=== PATIENT | female | born 1980 | race Caucasian/White ===

== ENCOUNTER → 2020-10-29 | Outpatient (CLI) | payer OTHER ==
[~2020-10-29] MED LIST: ADVAIR HFA 230/12 GM INH; ALBUTEROL0.63 MG/3 INH; COLACE100 MG PO; DAILY VALUE1 EACH PO; HYDROXYZINE HCL10 MG PO; IBU800 MG PO; IBUPROFEN800 MG PO; KLONOPIN1 MG PO; LISINOPRIL20 MG PO; LUBRICANT EYE DROPS EYEBOTH; MELATONIN3 MG PO; ONDANSETRON HCL8 MG PO; PANTOPRAZOLE PO; PERCOCET 5/325 T1 EA PO; PRAZOSIN HCL1 MG PO; PRAZOSIN HCL2 MG PO; PROAIR HFA8.5 GM INH; REXULTI0.5 MG PO; TYLENOL EXTRA500 MG PO; VITAMIN D21250 MCG PO; WELLBUTRIN SR200 MG PO; XYZAL5 MG PO; [UNRECOGNIZED DRUG - OTHER] EYEBOTH
[2020-10-29 10:42] LABS: RED BLOOD COUNT 4.47 M/UL (4.00-5.10); WHITE BLOOD COUNT 4.9 K/UL (4.5-11.0)
[2020-10-29 11:13] LABS: BUN/CREATININE RATIO 16 (0-10)
[2020-10-30 08:15] LABS: CORTISOL 12.3 ug/dL (.)
[2020-10-31 14:13] LABS: ATYPICAL PANCA <1:20 titer (Neg:<1:20); CYTOPLASMIC (C-ANCA) 1:40 titer (Neg:<1:20); PERINUCLEAR (P-ANCA) <1:20 titer (Neg:<1:20)
[2020-11-02 00:09] LABS: CCP ANTIBODIES IGG/IGA 5 units (0-19)
== END ==
LOC: LAB 09:53
PROVIDERS: Registered Nurse
DX: M79.10 Myalgia, unspecified site (principal); I10 Essential (primary) hypertension; R00.0 Tachycardia, unspecified
CPT/HCPCS: 36415; 80053; 82533; 84439; 84443; 85027; 86038; 86200; 86256

== ENCOUNTER → 2021-02-26 | Outpatient (CLI) | payer OTHER ==
[2021-02-26 10:48] LABS: HEMOGLOBIN 12.3 gm/dl (12.3-15.3); RED BLOOD COUNT 4.4 M/UL (4.00-5.10); WHITE BLOOD COUNT 6.5 K/UL (4.5-11.0)
[2021-02-26 10:55] LABS: BUN/CREATININE RATIO 12 (0-10)
== END ==
LOC: OPSV2 09:23
PROVIDERS: Obstetrics & Gynecology
DX: Z01.812 Encounter for preprocedural laboratory examination (principal); N93.9 Abnormal uterine and vaginal bleeding, unspecified
CPT/HCPCS: 36415; 80053; 81001; 85025

== ENCOUNTER → 2021-02-28 | Day surgery (SDC) | payer OTHER | END | disposition home or self-care (01) | LOC: OR 06:22 | DX: N80.3 Endometriosis of pelvic peritoneum (principal); N80.1 Endometriosis of ovary; N83.201 Unspecified ovarian cyst, right side; K66.0 Peritoneal adhesions (postprocedural) (postinfection); J45.909 Unspecified asthma, uncomplicated; I10 Essential (primary) hypertension; F41.9 Anxiety disorder, unspecified; F32.9 Major depressive disorder, single episode, unspecified; K21.9 Gastro-esophageal reflux disease without esophagitis; Z87.891 Personal history of nicotine dependence; Z79.1 Long term (current) use of non-steroidal anti-inflammatories (NSAID); Z79.899 Other long term (current) drug therapy | CPT/HCPCS: 36415; 84702; J0690; J1100; J1170; J1885; J2001; J2250; J2405; J2550; J2704; J2710; J3010; J7030; J7120 ==

== ENCOUNTER → 2021-03-24 | Outpatient (CLI) | payer OTHER ==
[2021-03-24 13:25] LABS: HEMOGLOBIN 13.1 gm/dl (12.3-15.3); RED BLOOD COUNT 4.42 M/UL (4.00-5.10); WHITE BLOOD COUNT 6.9 K/UL (4.5-11.0)
[2021-03-24 13:46] LABS: BUN/CREATININE RATIO 20 (0-10)
[2021-03-25 12:14] LABS: RHEUMATOID ARTHRITIS FACTOR <10.0 IU/mL (0.0-13.9)
== END ==
LOC: LAB 12:49
PROVIDERS: Nurse Practitioner Family
DX: M25.50 Pain in unspecified joint (principal); M79.10 Myalgia, unspecified site
CPT/HCPCS: 80053; 81001; 82550; 82570; 82728; 83520; 84156; 84439; 84443; 85025; 85652; 86140; 86200; 86431

== ENCOUNTER → 2021-04-29 | Outpatient (CLI) | payer OTHER ==
[2021-04-29 10:40] LABS: HEMOGLOBIN 13.2 gm/dl (12.3-15.3); RED BLOOD COUNT 4.5 M/UL (4.00-5.10); WHITE BLOOD COUNT 4.8 K/UL (4.5-11.0)
[2021-04-29 10:46] LABS: BUN/CREATININE RATIO 16 (0-10)
[2021-04-30 07:10] LABS: VITAMIN D, 25-HYDROXY 20.7 ng/mL (30.0-100.0)
[2021-04-30 08:14] LABS: RHEUMATOID ARTHRITIS FACTOR <10.0 IU/mL (0.0-13.9)
== END ==
LOC: LAB 08:29
PROVIDERS: Nurse Practitioner Family
DX: R05 Cough (principal); J32.9 Chronic sinusitis, unspecified; R76.8 Other specified abnormal immunological findings in serum; M25.50 Pain in unspecified joint; Z87.39 Personal history of other diseases of the musculoskeletal system and connective tissue
CPT/HCPCS: 36415; 71046; 80053; 81001; 82550; 82570; 82728; 83520; 84156; 84439; 84443; 85025; 85652; 86140; 86200; 86431

== ENCOUNTER → 2021-05-19 | Outpatient (CLI) | payer OTHER | LOC: KOH-I 10:05 | DX: J32.9 Chronic sinusitis, unspecified (principal); R76.8 Other specified abnormal immunological findings in serum | CPT/HCPCS: 70486; 71046 ==

== ENCOUNTER → 2021-07-02 | Outpatient (CLI) | payer OTHER ==
[~2021-07-02] MED LIST changes: +MAGIC MOUTH WASH; +PEPCID20 MG PO; +PRAZOSIN HCL5 MG PO
[2021-07-02 11:17] LABS: HEMOGLOBIN 13.4 gm/dl (12.3-15.3); RED BLOOD COUNT 4.5 M/UL (4.00-5.10); WHITE BLOOD COUNT 5.3 K/UL (4.5-11.0)
[2021-07-02 11:30] LABS: BUN/CREATININE RATIO 13 (0-10)
== END ==
LOC: OPSV2 09:22
PROVIDERS: Obstetrics & Gynecology
DX: Z01.812 Encounter for preprocedural laboratory examination (principal); R10.2 Pelvic and perineal pain
CPT/HCPCS: 36415; 80048; 81001; 85025

== ENCOUNTER 2021-07-10 11:54 | Inpatient (IN) | payer OTHER ==
[~2021-07-10] VITALS: Ht 160 cm; Wt 96.6 kg
--- NOTE | 2021-07-10 20:42 | NUR ---
Patient noted to be leaving floor at this time for surgery.
--- NOTE | 2021-07-10 23:31 | NUR ---
Approximately 23:25, patient noted to return from surgery. Wearing O2 at 3L via nasal cannula. Patient assessed. Carter in place. at bedside. Patient alert and oriented, complaining of abd pain. Pain med will be administered once available.
[2021-07-11] MEDS ORDERED: IBUPROFEN800 MG PO (12:47)
[2021-07-11] MEDS ORDERED: PERCOCET 5/325 T1 EA PO (12:47)
[2021-07-11] MEDS ORDERED: COLACE100 MG PO (12:47)
== END 2021-07-11 15:30 | disposition home or self-care (01) | DRG 743 ==
LOC: OR 11:54 → MED SURG 4 11:55 → OR 13:30 → EDSTATUS 13:30 → OR 13:45 → MED SURG 4 17:30
PROVIDERS: ADMIT Obstetrics & Gynecology
PROC: 0UB70ZZ Excision of Bilateral Fallopian Tubes, Open Approach (ICD-10-PCS; 2021-07-10)
PROC: 0UB20ZZ Excision of Bilateral Ovaries, Open Approach (ICD-10-PCS; 2021-07-10)
PROC: 0UN00ZZ Release Right Ovary, Open Approach (ICD-10-PCS; 2021-07-10)
PROC: 0UT90ZL Resection of Uterus, Supracervical, Open Approach (ICD-10-PCS; principal; 2021-07-10 13:45)
DX: N83.202 Unspecified ovarian cyst, left side (principal); N94.6 Dysmenorrhea, unspecified; J45.909 Unspecified asthma, uncomplicated; F41.9 Anxiety disorder, unspecified; I10 Essential (primary) hypertension; F32.A Depression, unspecified; R10.2 Pelvic and perineal pain; N93.9 Abnormal uterine and vaginal bleeding, unspecified; Z87.891 Personal history of nicotine dependence; Z79.899 Other long term (current) drug therapy; Z90.710 Acquired absence of both cervix and uterus; Z98.890 Other specified postprocedural states; Z90.49 Acquired absence of other specified parts of digestive tract; Z86.16 Personal history of COVID-19
CPT/HCPCS: 84703; J0690; J1100; J1170; J1885; J2001; J2250; J2270; J2405; J2704; J2710; J2765; J3010; J7120

== ENCOUNTER → 2021-07-16 | Outpatient (CLI) | payer OTHER ==
[2021-07-16 10:44] LABS: HEMOGLOBIN 12.4 gm/dl (12.3-15.3); RED BLOOD COUNT 4.21 M/UL (4.00-5.10)
[2021-07-16 11:22] LABS: BUN/CREATININE RATIO 15 (0-10)
[2021-07-17 07:10] LABS: HBSAG SCREEN Negative (Negative); HCV AB <0.1 (0.0-0.9); HEP B CORE AB, TOT Negative (Negative)
== END ==
LOC: LAB 09:34
PROVIDERS: Internal Medicine
DX: Z11.59 Encounter for screening for other viral diseases (principal); Z79.899 Other long term (current) drug therapy; M06.09 Rheumatoid arthritis without rheumatoid factor, multiple sites; M79.10 Myalgia, unspecified site; M25.50 Pain in unspecified joint
CPT/HCPCS: 36415; 80053; 81374; 85025; 85652; 86140; 86704; 86803; 87340